=== PATIENT | female | born 1960 | race African-American/Black ===

== ENCOUNTER → 2016-10-19 | Day surgery (SDC) | payer OTHER ==
[~2016-10-19] VITALS: Ht 167.6 cm; Wt 83.0 kg
[~2016-10-19] MED LIST: HYDR25TA4 PO; Ondansetron 2 mg/mL 2 mL Inj IVPUSH ONE; Ondansetron 2 mg/mL 2 mL Inj ONE; PREC VG; fentaNYL-PF 50 mCg/mL 2 mL Inj IVPUSH PRN
[2016-10-19 11:29] VITALS: BP 147/95; PULSE 83; RESP 16; O2SAT 99
[2016-10-19 13:40] VITALS: BP 108/64; PULSE 77; RESP 16; O2SAT 99
[2016-10-19 13:52] VITALS: BP 105/64; PULSE 70; RESP 14; O2SAT 97
[2016-10-19 14:11] VITALS: BP 107/67; PULSE 71; RESP 12; O2SAT 100
--- NOTE | 2016-10-19 14:15 | ENDO ---
[address] [address] ENDOSCOPY PROCEDURE PATIENT: PAYTON SOLANO : 1960 MR#: [id number] ADMIT: 10/19/2016 JOB ID: [id number] DATE: 10/19/2016 PRE-PROCEDURE DIAGNOSIS: Personal history of tubular adenomas; family history of colon cancer. PROCEDURE PERFORMED: Colonoscopy with polypectomy (incomplete). SURGEON: Autumn Basurto M.D. INSTRUMENT: Olympus PCF H 180 AL. MEDICATIONS: 1. Versed 10 mg. 2. Fentanyl 200 mcg. She did not tolerate the procedure without anesthesia, and an anesthesiologist is recommended for future colonoscopies. FINDINGS: 1. Small 5 mm polyp in the left colon at 55 cm, removed with cold forceps. 2. A tiny benign-appearing rectal polyp was present in the rectum, removed with cold forceps. 3. The procedure could not be completed because the patient did not tolerate the full procedure with moderate anesthesia. Anesthesiologist was not available at the time of the procedure. The colonoscopy reached approximately the proximal transverse colon. DESCRIPTION OF PROCEDURE: The patient was brought to the operating room and placed in the supine position. Moderate anesthesia was induced and she was put in left lateral decubitus position. External examination revealed a large external hemorrhoidal skin tag, nonfriable. Digital rectal examination was normal. The colonoscope was advanced to the proximal transverse colon, however, due to non tolerance of moderate anesthesia, the colonoscope could not be advanced further. Therefore, an anesthesiologist was called, but none were available. The colonoscope was then withdrawn over the course of 11 minutes. Findings included mild melanosis coli throughout the colon, a 5 mm polyp in the descending colon at 55 cm, and a benign-appearing 5 mm polyp in the rectum, which was removed with cold forceps. Retroflexed examination of the rectum revealed internal hemorrhoids. The colonoscope was withdrawn. The patient did not tolerate the procedure well and an anesthesiologist is recommended for future endoscopy. ESTIMATED BLOOD LOSS: None. COMPLICATIONS: None. SPECIMENS: 1. One left colon polyp at 55 cm. 2. Rectal polyp, approximately 5 cm proximal to the anal verge. [facility]
--- NOTE | 2016-10-23 15:16 | PATH ---
SURGICAL PATHOLOGY Attending Physician:Autumn Basurto MD CASE STATUS: Signed Out PATIENT NAME: PAYTON SOLANO PID: [id number] : 1960 DATE COLLECTED:10/19/2016 00:00 SPECIMEN: 1: Colon, Polyp 2: Rectum, Biopsy CLINICAL HISTORY: 1). LEFT COLON POLYP X1 @ 55CM 2). RECTAL POLYP X1 FINAL DIAGNOSIS: 1. Left Colon Polyp at 55 cm: Hyperplastic polyp involving all biopsy fragments. 2. Rectal Polyp: Polypoid-shaped fragment of colon mucosa associated with very prominent submucosal and mucosal lymphoid hyperplasia. ICD10: K63.5 GROSS DESCRIPTION: The specimen is received in two formalin filled containers labeled with the patient's name. 1). The specimen is sublabeled "left colon polyp at 55 CM" and consists of 3 portions of tissue which aggregate to 0.2 x 0.2 x 0.2 CM. The specimen is entirely submitted in cassette 1A. 2). The specimen is sublabeled "rectal polyp" and consists of a 0.3 x 0.2 x 0.2 CM portion of tissue which is entirely submitted in cassette 2A. 10/20/2016 [facility] ICD-9 CODES: CPT CODES: 1: 78366 2: 47760 Electronically Signed Out Akbar Ambrosio MD [facility] Pathology [facility] [address], [place] [address] Technical component performed at [facility], [facility] [address], [place], [address]
== END | disposition home or self-care (01) ==
LOC: END 00:52
PROVIDERS: ATTEND Surgery
DX: Z12.11 Encounter for screening for malignant neoplasm of colon (principal); Z86.010 Personal history of colon polyps; Z80.0 Family history of malignant neoplasm of digestive organs; K63.5 Polyp of colon; K62.1 Rectal polyp; I10 Essential (primary) hypertension; L40.9 Psoriasis, unspecified; Z85.828 Personal history of other malignant neoplasm of skin; Z79.890 Hormone replacement therapy
CPT/HCPCS: 45380; 99153; G0500; J2250; J2405; J3010; J7030